=== PATIENT | male | born 1985 | race Caucasian/White ===

== ENCOUNTER → 2018-06-08 | Day surgery (SDC) | payer BC ==
[2018-06-07 13:55] VITALS: BP 139/88
[2018-06-07 15:23] LABS: BASOPHIL # 0.1 10^3/uL (0.0-0.1); EOSINOPHIL # 0.7 10^3/uL (0.0-0.2); EOSINOPHIL % 8.8 % (0.0-5.0); LYMPHOCYTES # 2.6 10^3/uL (1.0-4.8); LYMPHOCYTES % 31.5 % (24.0-44.0); MEAN CELL HGB 32.9 pg (26-34); MEAN CELL HGB CONCENTRATION 34.9 g/dL (33-37); MEAN CORP VOLUME 94.3 fL (78-100); MEAN PLATELET VOLUME 11.4 fL (7.8-11.0); MONOCYTES # 0.6 10^3/uL (0.3-0.8); MONOCYTES % 7.6 % (5.0-12.0); NEUTROPHIL # 4.3 10^3/uL (1.8-7.7); RED CELL DISTRIBUTION WIDTH 12.6 % (11.5-14.5); WHITE BLOOD CELL 8.4 10^3/uL (4.5-11.0)
--- NOTE | 2018-06-07 15:30 | PCM.EKG ---
[facility] Test Date: 2018-06-07 Test Time: 14:18:31 Pat Name: TRUDI HOLLEY Department: Patient ID: [id number] Room: Gender: M Financial Services Rep: DANE : 1985 Requested By: ELLY BOWMAN Order Number: [id number] Reading MD: Leonardo Dixon Measurements Intervals [place] Rate: 90 P: 64 NC: 162 QRS: 75 QRSD: 92 T: 52 QT: 408 QTc: 499 Interpretive Statements Normal sinus rhythm Prolonged QT Abnormal ECG No previous ECG available for comparison Electronically Signed On 06-11-2018 11:21:55 [employer] by Leonardo Dixon Please click the below link to view image of tracing.
[2018-06-07 15:38] LABS: CARBON DIOXIDE 28.2 mmol/L (20.0-32)
[2018-06-08] VITALS (9 sets, daily range): BP systolic 110–137; BP diastolic 61–82
[~2018-06-08] VITALS: Ht 172.7 cm; Wt 107.0 kg
[~2018-06-08] MED LIST: ACET-687 PO; DECADRON ONE; DILAUDID ONE; DIPRIVAN IV ONE; LACTATED RINGERS 1,000 ML IV SCH; LIDOCAINE 2% VIAL ONE; NS 3000ML IRR IR ONE; PHENERGAN IV PRN; SODIUM CHLORIDE IR ONE; SUBLIMAZE IV PRN; SUBLIMAZE ONE; TORADOL ONE; TRAM-47 PO; ULTRAM PO STA; VERSED ONE; XYLOCAINE 2%-EPI 1:100,000 ONE; ZOFRAN IV PRN; ZOFRAN ONE
--- NOTE | 2018-06-08 11:55 | OPH ---
DATE OF SURGERY: 06/08/2018 PREOPERATIVE DIAGNOSIS: Medial meniscal tear of the left knee. POSTOPERATIVE DIAGNOSES: Medial meniscal tear of the left knee. OPERATIVE PROCEDURE: Arthroscopy of the left knee with partial medial meniscectomy. SURGEON: Idris Nye MD. ANESTHESIA: LMA. TOURNIQUET TIME: None. BLOOD LOSS: 20 mL. DESCRIPTION OF INDICATIONS: The patient is a 32-year-old male with a 4-year history of painful popping and catching about the left knee. He is no better with conservative treatment including home therapy off the shelf bracing, anti-inflammatories and cortisone injection. He has pain about the medial joint line as well as a positive Jane test. The x-rays were negative, but the MRI scan shows that he has a tear of the posterior horn of the medial meniscus with some arthritic changes about his patellofemoral joint. Because of painful mechanical symptoms, the patient was taken to the operating room today for arthroscopy. DESCRIPTION OF PROCEDURE: The patient was placed in the operating table in the supine position. LMA anesthetic was induced without difficulty. The patient had the left thigh padded and a tourniquet was applied. Left lower extremity was then sterilely prepped and draped. Arthroscopy portals were made superolateral, anterolateral and anteromedial. The arthroscope was introduced anterolaterally into the suprapatellar pouch. There was mild hypertrophic synovium. There were no loose bodies. The articular cartilage about the patella had some mild grade 2 chondromalacia. Similarly, the femoral sulcus had some grade 2-3 chondromalacia. There were no loose bodies or loose pieces of articular cartilage. The patient had the medial and lateral gutters viewed. There were no osteophytes or loose bodies noted. The medial compartment was viewed. 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 Any loose articular cartilage was shaved with a shaver. He had a tear of the posterior horn of the medial meniscus that was not amenable to repair. A partial meniscectomy of the posterior horn was performed with a shaver and a biter as well as an ArthroWand. The intercondylar notch reviewed. His anterior and posterior cruciate ligaments were normal. The patient then had the knee placed in a [id number] position. His lateral compartment and lateral meniscus were both normal. The patient then had the arthroscopic equipment removed from the knee. The portal tracts were closed with 3-0 Ethilon in an interrupted manner. A compressive dressing was applied. He was extubated in the operating room, sent to recovery in stable condition. Idris Nye MD DR: GAYLE/jaime JOB# [id number]
== END | disposition home or self-care (01) ==
LOC: SDC 02:51
PROVIDERS: ATTEND Orthopaedic Surgery
DX: M23.322 Other meniscus derangements, posterior horn of medial meniscus, left knee (principal); M22.42 Chondromalacia patellae, left knee; M67.262 Synovial hypertrophy, not elsewhere classified, left lower leg; F17.210 Nicotine dependence, cigarettes, uncomplicated; E66.9 Obesity, unspecified; Z68.35 Body mass index [BMI] 35.0-35.9, adult; Z98.890 Other specified postprocedural states; Z98.52 Vasectomy status; Z79.899 Other long term (current) drug therapy; Z83.3 Family history of diabetes mellitus; Z82.49 Family history of ischemic heart disease and other diseases of the circulatory system; Z82.5 Family history of asthma and other chronic lower respiratory diseases
CPT/HCPCS: 29881; 36415; 80051; 85025; 93005; A4217 ×2; A4649 ×5; J1100; J1885; J2001; J2250; J2405; J3010; J3490